=== PATIENT | female | born 1960 | race Caucasian/White ===

== ENCOUNTER 2017-01-27 15:51 | Emergency (ER) | payer MEDICARE, MEDICAID ==
[~2017-01-27] VITALS: Ht 154.9 cm; Wt 150.1 kg
[~2017-01-27 15:51] MED LIST: ACTOS30 MG PO; ALPRAZOLAM PO; BENADRYL 50MG C50 MG PO; CLARITIN10 MG OR; CLOTRIMAZOLE 1%15 GM TP; CO Q-1050 MG PO; COUMADIN7.5 MG PO; DARVOCET-N 1001 EACH PO; DICYCLOMINE20 MG PO; FLEXERIL10 MG PO; GABAPENTIN 600600 MG PO; GABAPENTIN TAB600 MG PO; GLUCOPHAGE1000 MG PO; GLUCOPHAGE500 MG PO; HCTZ/TRIAMTEREN1 TA1 OR; IBU-8800 MG PO; IRON65 MG PO; K-DUR 20MEQ TA20 MEQ PO; LEVAQUIN500 MG PO; LEVOTHYROXIN0.075 MG PO; LISINOPRIL10 MG PO; METFORMIN1000 MG PO; METRONIDAZOLE0.75% TP; NASONEX0.05 MG/AC NS; NEXIUM2.5 MG/Pac PO; OXYBUTYNIN5 MG PO; PROTONIX 40MG T40 MG PO; SERTRALINE 100100 MG PO; STOOL SOFTENER240 MG PO; TRIAMCINOLONE0.0251 TP; TYLENOL ES500 MG PO; TYLENOL EXTRA500 M1 PO; VITAMIN B COMPL PO; VITAMIN B121000 MC2 SL; VOLTAREN GEL1% TP; WARFARIN SOD5 MG PO; WARFARIN SODIU2.5 MG PO; XANAX 0.5MG TA0.5 MG PO; XANAX 1MG TABLET1 MG PO; XANAX0.5 MG PO
[2017-01-27] MEDS ORDERED: AUGMENTIN 875-1 EACH PO (16:38)
--- NOTE | 2017-01-27 16:39 | [facility]gent [facility] Report ---
History of Present Issue Date/Time Seen by Provider 01/27/17 5360 Visit Reason Pt arrived:Wheelchair Presenting Problem:PT C/O RT EAR PAIN SINCE TUESDAY AFTERNOON Location if Accident: Onset of symptoms date/time:/ or onset unknown for:MEDICAL HX UNKNOWN Have you (or family members/close friends) recently traveled outside the [place]? N If Yes, where/when: Have you had exposure to infectious disease within the past month? TB? Other? Specify: c/o right ear drainage and difficulty hearing. Can't see PCP until Tuesday and ENT, Dr. Flowers, next week. Went ahead and scheduled those appointments "but I need something done today". Mild ear pain intermittently but most bothered by difficulty hearing and right cheek pain. Has used cotton swab to clean around edges but denies placing it into ear canal. No improvement w/ unknown type of ear drops > 1 year old. Reporting allergy/cold symptoms x weeks not improved w/ daily antihistamine. Has nasonex but not using regularly. No fever. Source patient Exam Limitations no limitations ALLERGIES Coded Allergies: atorvastatin (Mild, 01/27/17) levofloxacin (From LEVAQUIN) (Mild, 01/27/17) sulfamethoxazole (From BACTRIM) (Mild, 01/27/17) trimethoprim (From BACTRIM) (Mild, 01/27/17) Home Medications Active Scripts Levofloxacin (Levaquin 500MG) 500 MG PO DAILY #10 TAB Prov: 10/20/14 Reported Medications Mometasone Furoate (Nasonex) 2 SPRAY NS PRN Gabapentin 1,200 MG PO QAM WARFARIN SOD (Warfarin 5MG) 5 MG PO DAILY Levothyroxine Sodium 125 MCG PO DAILY Lisinopril 5 MG PO DAILY Iron 65 MG PO DAILY Diphenhydramine Hcl (Benadryl 50MG Cap) 25 MG PO QHS B COMPLEX WITH VITAMIN C (Vitamin B-Complex With Vit C) 1 CAP PO DAILY Gabapentin (Gabapentin 600MG) 600 MG PO 1600 Gabapentin (Gabapentin 600MG) 600 MG PO QHS Cyanocobalamin (Vitamin B12) 1,000 MCG SL DAILY MISCELLANEOUS (UNKNOWN MEDICATION) 1 TAB PO BID Pantoprazole Sodium (Protonix 40MG TAB) 40 MG PO DAILY Metronidazole 0.75 TP PRN Acetaminophen (Tylenol XS 500MG) 500 MG PO PRN PRN . Diclofenac Sodium (Voltaren Gel) 1 TP QID Clotrimazole (Clotrimazole 1% Cream 15GM Tube) 1 TP DAILY Alprazolam (Xanax 1MG) 1 MG PO BID Alprazolam (Xanax 0.5MG) 0.5 MG PO BID History Medical History General CAD? No Angina: Yes [place]: No Hypertension? Yes Hyperlipidemia? No CHF? No DVT? Yes PE? No COPD? No Asthma? No Anemia? Yes GERD? No Gastric ulcers? No GI Bleed? No Hernia? Yes Thyroid Problems? Yes Hypothyroidism? Yes CVA? No Seizures? No Diabetes? Yes Insulin Dependent: No Insulin Pump: No Home FSBS? No Renal Insuffiency? No UTI? Yes Stones? No BPH? No GB Disease: No Nephritic Syndrome? No Asplenia? No Hepatitis? No Sickle Cell Disease? No Arthritis? Yes Migraines? No Cataracts? No Glaucoma? No MRSA? No HIV? No TB? No Anxiety? No Depression? No Cancer? No More? No Immunization HX DT/Tetanus > 10 Years Ago Flu LAST YEAR Pneumonia 1-4 YRS Surgical Hx Previous Surgery?Y Tonsils D & C GASTRIC SLEEVE Family History Family HX Diabetes Yes CAD Yes Hypertension Yes Hyperlipidemia Yes Cancer No TB Yes Social History Smoking Hx Smoker: Never Smoker Tobacco: No Alcohol Alcohol: No Review of Systems All Other Systems Reviewed and Negative Constitutional denies fever, denies malaise Eyes see HPI, denies drainage ENT see HPI, nose congestion ("I keep that"), other (PND and right cheek pain). denies: nose discharge, throat pain. Respiratory cough (mild, intermittent, ), denies shortness of breath, denies wheezing Gastrointestinal denies no symptoms reported Skin denies rash Psychiatric/Neurological denies headache ("just mostly face"), denies other (dizziness) Physical Exam Vital Signs Vital Signs Date Time Temp Pulse Resp B/P Pulse O2 O2 Flow FiO2 Ox Delivery Rate 01/27 1649 97.9 58 20 105/41 97 01/27 1600 97.9 58 20 105/41 97 General Appearance no apparent distress, obese (morbidly, in electric w/c) Eye Exam - bilateral eye normal exam Ear, Nose, Throat left EAC and TM normal, right EAC w/ solid white impaction blocking view of TM; nasal congestion; right maxillary sinus tenderness, PND and cobblestoning w/o pharyngeal erythema Neck non-tender, supple Respiratory Status No: respiratory distress, productive cough, non productive cough. Lung Sounds anterior: lungs clear. posterior: lungs clear. bilateral: lungs clear. Cardiovascular regular rate/rhythm, no peripheral edema, no murmur Neurologic alert, oriented x 3 Skin normal color Lymphatic no adenopathy Medical Decision Making LABS/Meds/Orders Pt receiving controlled substance in ED? No Results/Orders Orders Procedure Date/time Status CHRISTINA PREP 01/27 162 Complete CULTURE, FUNGAL 01/27 162 Active Procedures General/Other Procedure [facility] Procedure Note Date 01/27/17 - Copious amounts of thick white discharge removed from right EAC consistent w/ darby. Unable to completely removed w/ currette, warm soapy water in elephant ear wash necessary. Cultures sent. Departure Departure Time of Disposition 1635 Disposition DC Home or Self Care(routine) Clinical Impression Primary Impression: Otitis externa, fungal, right ear Secondary Impressions: Sinusitis Qualifiers: Sinusitis location: maxillary Chronicity: acute Recurrence: recurrent Qualified Code: J01.01 - Acute recurrent maxillary sinusitis Condition STABLE Referrals Horace NGUYEN,Shira Horne (Family) Keep FU appt Tuesday Juan Antonio Flowers MD Keep scheduled appt next week Patient Instructions DI for Otitis Externa, DI for Sinusitis Additional Instructions * Start antibiotic and be sure to take as ordered for the FULL length of time even if you feel better. Sinus infections do not get better overnight. It may take 2-3 days to notice much improvement so be sure to use conservative measures as discussed for symptoms. * Flonase 2 sprays each nostril daily to help with nasal congestion, sinus and ear pressure/inflammation * Lots of fluids * Sleep elevated * Humidifier/vaporizer * Keep ear dry. no water in ear. Use drops as ordered. Keep follow up with ENT Discharge Counseling Counseled pt/family regarding diagnosis, medications/RX, home care, follow up needs Prescriptions Current Visit Scripts Amoxicillin/Potassium Clav (Augmentin 875-125 Tablet) 1 EACH PO BID #20 TAB Comments clotrimazole ear drops TID-QID x 7 days until FU with Dr. Flowers at [id number]
[2017-01-27 16:49] VITALS: BP 105/41
== END 2017-01-27 16:50 | disposition home or self-care (01) ==
LOC: UTC 15:51
DX: H60.8X1 Other otitis externa, right ear (principal); J01.01 Acute recurrent maxillary sinusitis; E03.9 Hypothyroidism, unspecified; Z79.01 Long term (current) use of anticoagulants; I10 Essential (primary) hypertension; Z88.2 Allergy status to sulfonamides; Z88.8 Allergy status to other drugs, medicaments and biological substances